=== PATIENT | female | born 1945 | race African-American/Black ===

== ENCOUNTER 2024-06-05 06:15 | Emergency (ER) | payer OTHER ==
[~2024-06-05] VITALS: Ht 149.9 cm; Wt 48.0 kg
[2024-06-05 06:19] VITALS: O2SAT 99
[2024-06-05] MEDS: MAGNESIUM/ALUMINUM HYDROXIDE/SIMETHICONE 30ML UDC PO STA (06:32)
[2024-06-05] MEDS: KETOROLAC 30MG/ML VIAL IV STA (06:32)
[2024-06-05] MEDS: ONDANSETRON HCL 4MG/2ML INJ IV STA (06:32)
[2024-06-05] MEDS: SODIUM CHLORIDE 0.9% 1,000 ML IV ONE (07:22)
[2024-06-05 08:57] LABS: BASOPHILS % 0.3 % (0.0-2.0); EOSINOPHILS % 0.1 % (0.0-5.0); HEMOGLOBIN. 13.6 g/dL (12.0-16.0); LYMPHOCYTES % 10.8 % (20.0-50.0); MEAN CORPUSCULAR HEMOGLOBIN 29.3 pg (28.0-32.0); MEAN CORPUSCULAR HGB CONC 32.4 g/dL (31.0-37.0); MEAN CORPUSCULAR VOLUME 90.3 fL (81.0-99.0); MEAN PLATELET VOLUME 7.5 fl (7.4-10.4); MONOCYTES % 4.3 % (2.0-8.0); NEUTROPHILS % 84.5 % (40.0-76.0); PLATELET 303 x1000/uL (130-400); RED BLOOD CELL COUNT 4.66 mill/uL (4.2-5.4); RED CELL DISTRIBUTION WIDTH 14.2 % (11.6-14.6); WHITE BLOOD COUNT 6.9 x1000/uL (4.5-11.0)
[2024-06-05] MEDS: KETOROLAC 30MG/ML VIAL IV NR (09:02)
[2024-06-05] MEDS: ONDANSETRON HCL 4MG/2ML INJ IV NR (09:02)
[2024-06-05] MEDS: MAGNESIUM/ALUMINUM HYDROXIDE/SIMETHICONE 30ML UDC PO NR (09:02)
[2024-06-05 09:15] LABS: CHLORIDE 107 mEq/L (98-107); POTASSIUM 4.8 mEq/L (3.5-5.1); SODIUM 141 mEq/L (136-145); TROPONIN I HIGH SENSITIVITY 8 ng/L (3.0-34)
[2024-06-05 09:17] LABS: CALCIUM 9.3 mg/dL (8.7-10.4); CARBON DIOXIDE 23 mEq/L (21-32)
[2024-06-05 09:21] LABS: CREATININE 0.9 mg/dL (0.6-1.0)
[2024-06-05 09:22] LABS: GLUCOSE 124 mg/dL (70-105)
[2024-06-05 09:23] LABS: ALANINE AMINOTRANSFERASE 14 IU/L (10-49); ALBUMIN 4.5 g/dL (3.2-4.8); ASPARTATE AMINOTRANSFERASE 28 IU/L (<34)
[2024-06-05 09:24] LABS: BILIRUBIN DIRECT 0.1 mg/dL (<=3.0); BILIRUBIN TOTAL 0.5 mg/dL (0.1-1.0); PROTEIN TOTAL 7.8 g/dL (6.0-8.3)
[2024-06-05 09:34] LABS: UREA NITROGEN BLOOD 27 mg/dL (9-23)
[2024-06-05] MEDS: DICYCLOMINE 10 MG/5 ML ORAL SYR PO STA (10:07)
[2024-06-05] MEDS: LACTATED RINGERS 1,000 ML IV SCH (15:15)
[2024-06-05] MEDS: PANTOPRAZOLE SODIUM 40 MG/VIAL IV SCH (15:15)
[2024-06-05 15:20] VITALS: BP 141/80; PULSE 79; RESP 18; TEMP 36.9; O2SAT 98
[2024-06-05] MEDS: METOCLOPRAMIDE HCL 10MG/2ML VIAL IV PRN (15:54)
[2024-06-05] MEDS ORDERED: SUCRALFATE 1G TABLET PO SCH (17:00)
== END 2024-06-05 16:31 | disposition short-term general hospital (02) ==
LOC: ER 06:15 → EDBEDREQTM 13:45 → EDBEDREQ 13:45 → ER 16:31
DX: R11.2 Nausea with vomiting, unspecified (principal); R10.9 Unspecified abdominal pain; R19.7 Diarrhea, unspecified; K57.92 Diverticulitis of intestine, part unspecified, without perforation or abscess without bleeding; E78.00 Pure hypercholesterolemia, unspecified; Z79.899 Other long term (current) drug therapy
CPT/HCPCS: 99285; 74176; 96374; 96361; 96375; 80076; 80048; 83690; 85025; 84484; 36415; J1885; J2765; J2405; J7030; A4606

== ENCOUNTER 2024-06-09 05:37 | Emergency (ER) | payer OTHER ==
[~2024-06-09] VITALS: Ht 165.1 cm; Wt 50.0 kg
[2024-06-09 05:44] VITALS: O2SAT 98
[2024-06-09] MEDS ORDERED: ONDANSETRON HCL 4MG/2ML INJ IV STA (06:58)
[2024-06-09] MEDS ORDERED: KETOROLAC 30MG/ML VIAL IV STA (06:58)
[2024-06-09] MEDS ORDERED: MAGNESIUM/ALUMINUM HYDROXIDE/SIMETHICONE 30ML UDC PO STA (06:58)
[2024-06-09] MEDS: DICYCLOMINE 10 MG/5 ML ORAL SYR PO STA (06:58)
[2024-06-09] MEDS: SODIUM CHLORIDE 0.9% 1,000 ML IV ONE (07:00)
[2024-06-09] MEDS ORDERED: DICYCLOMINE HCL 10MG CAPSULE PO STA (07:17)
[2024-06-09 08:26] LABS: BASOPHILS % 0.6 % (0.0-2.0); EOSINOPHILS % 0.1 % (0.0-5.0); HEMATOCRIT. 44.5 % (36.0-48.0); LYMPHOCYTES % 22.8 % (20.0-50.0); MEAN CORPUSCULAR HEMOGLOBIN 29.8 pg (28.0-32.0); MEAN CORPUSCULAR HGB CONC 33.7 g/dL (31.0-37.0); MEAN CORPUSCULAR VOLUME 88.4 fL (81.0-99.0); MEAN PLATELET VOLUME 7.3 fl (7.4-10.4); MONOCYTES % 8.1 % (2.0-8.0); NEUTROPHILS % 68.4 % (40.0-76.0); PLATELET 288 x1000/uL (130-400); RED BLOOD CELL COUNT 5.03 mill/uL (4.2-5.4); RED CELL DISTRIBUTION WIDTH 13.8 % (11.6-14.6); WHITE BLOOD COUNT 8.3 x1000/uL (4.5-11.0)
[2024-06-09 08:34] LABS: CHLORIDE 95 mEq/L (98-107); POTASSIUM 3.4 mEq/L (3.5-5.1); SODIUM 130 mEq/L (136-145)
[2024-06-09 08:35] LABS: CALCIUM 9.2 mg/dL (8.7-10.4); CARBON DIOXIDE 27 mEq/L (21-32)
[2024-06-09 08:40] LABS: CREATININE 1.1 mg/dL (0.6-1.0); GLUCOSE 113 mg/dL (70-105); UREA NITROGEN BLOOD 20 mg/dL (9-23)
[2024-06-09 08:42] LABS: ALANINE AMINOTRANSFERASE 12 IU/L (10-49); ALBUMIN 3.9 g/dL (3.2-4.8); ASPARTATE AMINOTRANSFERASE 15 IU/L (<34); BILIRUBIN DIRECT 0.2 mg/dL (<=3.0); BILIRUBIN TOTAL 0.9 mg/dL (0.1-1.0); PROTEIN TOTAL 6.3 g/dL (6.0-8.3)
[2024-06-09] MEDS: KETOROLAC 30MG/ML VIAL IV NR (09:31)
[2024-06-09] MEDS: MAGNESIUM/ALUMINUM HYDROXIDE/SIMETHICONE 30ML UDC PO NR (09:32)
[2024-06-09] MEDS: DICYCLOMINE HCL 10MG CAPSULE PO NR (09:32)
[2024-06-09] MEDS: ONDANSETRON HCL 4MG/2ML INJ IV NR (09:32)
[2024-06-09] MEDS: MORPHINE SULFATE 4 MG/ML INJ (FOR IV/IM USE) IV ONE (12:57)
[2024-06-09 13:33] VITALS: BP 113/63; PULSE 80; RESP 16; TEMP 37; O2SAT 98
== END 2024-06-09 14:15 | disposition short-term general hospital (02) ==
LOC: ER 05:37
DX: R10.30 Lower abdominal pain, unspecified (principal); E78.00 Pure hypercholesterolemia, unspecified
CPT/HCPCS: 99285; 96374; 96375; 96361; 80076; 80048; 83605; 85025; 36415; J1885; J2405; J2270; J7030